=== PATIENT | male | born 1980 | race Caucasian/White ===

== ENCOUNTER 2016-09-28 12:29 | Emergency (ER) | payer BC ==
[~2016-09-28] VITALS: Ht 177.8 cm; Wt 102.3 kg
[2016-09-28 13:29] LABS: BASOPHILS % (AUTO) 1 % (0-2); EOSINOPHILS # (AUTO) 0.3 10^3uL; EOSINOPHILS % (AUTO) 4 % (0-4); LYMPHOCYTES # (AUTO) 3.8 X10^3; MEAN CORPUSCULAR HEMOGLOBIN 29.9 PG (26.0-34.0); MEAN CORPUSCULAR HGB CONC 34.2 g/dL (31.0-37.0); MEAN CORPUSCULAR VOLUME 88 FL (80-100); MEAN PLATELET VOLUME 10.4 FL (6.0-9.5); MONOCYTES # (AUTO) 0.9 X10^3; MONOCYTES % (AUTO) 11 % (3-11); NEUTROPHILS # (AUTO) 3.5 X10^3; NEUTROPHILS % (AUTO) 40 % (51-67); PLATELET COUNT 242 10^3uL (150-450); WHITE BLOOD COUNT 8.63 10^3uL (4.0-11.0)
[2016-09-28 13:45] LABS: ALBUMIN 4.4 g/dL (3.4-5.0); ALKALINE PHOSPHATASE 78 U/L (38-126); ANION GAP 14.5 MEQ/L (3-15); BUN/CREATININE RATIO 13 (10-20); CALCULATED IONIZED CALCIUM 3.9 mg/dL (3.8-4.6); TOTAL PROTEIN 7.7 g/dL (6.4-8.5)
[2016-09-28 15:31] LABS: ERYTHROCYTE SEDIMENTATION RT* 10 mm/hr (0-12)
[2016-09-28 19:37] VITALS: BP 137/94
== END 2016-09-28 14:33 | disposition home or self-care (01) ==
LOC: ED 12:33
DX: K62.5 Hemorrhage of anus and rectum (principal); R10.32 Left lower quadrant pain
CPT/HCPCS: 36415; 46600; 80053; 85025; 85610; 85652; 86140; 99282; 99283

== ENCOUNTER 2016-10-01 08:07 | Day surgery (SDC) | payer BC ==
[~2016-10-01] VITALS: Ht 177.8 cm; Wt 99.1 kg
[~2016-10-01 08:07] MED LIST: LACTATED RINGERS 1,000 ML IV SCH; SODIUM CHLORIDE FLUSH 3 ML SYR IV PRN
--- OUTSIDE RECORDS SUMMARY | 2016-10-01 08:26 | XMS REPORT | Continuity of Care Document ---
Author Author [facility] Address Unknown Phone Unavailable Support Name Relationship Address Phone LENCHO DUGAN DO Caregiver [address] [place] [address] ERICKAOTILIA CASAREZ Next Of Kin [address] [place] [address] Insurance Providers Payer Name Policy Number Subscriber Name Relationship Self Pay ErickaKylie casarezCheyanne 18 Self / Same As Patient Advance Directives Directive Response Recorded Date/Time Advanced Directives No 09/28/16 12:40pm Chief Complaint and Reason for Visit Chief Complaint GI Complaint Reason for Visit [id number] Problems Active Problems Medical Problem Onset Date Status Rectal bleeding Unknown Acute Medications No medication information available. Social History Query Response Start Date Stop Date Smoking Status Current every day smoker Hospital Discharge Instructions No hospital discharge instructions. Plan of Care Discharge Date 09/28/16 2:33pm Disposition 01 HOME OR SELF-CARE Condition at Discharge Stable Instructions/Education Provided Gastrointestinal Bleeding (DC) Prescriptions See Medication Section Referrals CULLEN MCPHERSON MD - Additional Instructions/Education You should return to the ER if you have any further rectal bleeding, or worsening abdominal pain. Call Dr. Mcpherson's office in the morning to arrange follow up care. Some of your test results may not be complete prior to your leaving the Emergency Department. The Emergency Department is not authorized to give test results over the phone. Please contact the doctor's office listed in this packet of information for your final results. Follow up with your primary care physician or return to the Emergency Department for worsening or worrisome symptoms. * Emergency Department phone number: [phone], x [phone]* MEDICAL RECORD If you need copies of your X-rays, call [phone]. If you need copies of your medical record, including lab results, a signed authorization for release of records will be required. A telephone call for release of Health Information is not allowed. BILLING Billing can sometimes be confusing and frustrating. To help avoid confusion in the future, please take a moment to acquaint yourself with the billing parties for services. SERVICE BILLING [facility] Emergency Room Services [facility] Physician Services [facility] X-rays [facility] Patients will receive bills for services from the appropriate provider. If you have any questions about your [facility] bill, our staff will be happy to assist you. Please call [phone], and ask for the billing department. THANK YOU for choosing [facility] as your emergency care provider! Care Plan and Goals ~~Discharge Care Plan~~ Problem: Rectal bleeding Goal: Instructions: Follow up with Dr Mcpherson Functional Status No functional status results. Allergies, Adverse Reactions, Alerts No allergy information available. Immunizations No immunization records. Vital Signs Acute Vital Signs Vital Response Date/Time Temperature (Fahrenheit) 98.0 09/28/2016 12:40pm Pulse 78 bpm 09/28/2016 12:40pm Respirations 16 09/28/2016 12:40pm Height 5 ft 10 in Weight 225 lb Body Mass Index 32.0 kg/m^2 Results Laboratory Results Test Name Result Units Flags Reference Collection Date/Time Result Date/ Time Comments White Blood Count 8.63 10^3uL 4.0-11.0 09/28/2016 1:22pm 09/28/2016 1: 36pm Red Blood Count 5.11 10^6uL 4.50-5.50 09/28/2016 1:22pm 09/28/2016 1: 36pm Hemoglobin 15.3 g/dL 13.5-17.0 09/28/2016 1:22pm 09/28/2016 1:36pm Hematocrit 44.70 % 39.00-50.00 09/28/2016 1:09/28/2016 1:36pm Mean Corpuscular Volume 88 FL 80-100 09/28/2016 1:09/28/2016 1: 36pm Mean Corpuscular Hemoglobin 29.9 PG 26.0-34.0 09/28/2016 1:2016 1:36pm Mean Corpuscular Hemoglobin Concent 34.2 g/dL 31.0-37.0 09/28/2016 1: 09/28/2016 1:36pm Red Cell Distribution Width 13.9 % 11.8-15.6 09/28/2016 1:2016 1:36pm Platelet Count 242 10^3uL 150-450 09/28/2016 1:09/28/2016 1:36pm Mean Platelet Volume 10.4 FL H 6.0-9.5 09/28/2016 1:09/28/2016 1: 36pm Neutrophils (%) (Auto) 40 % L 51-67 09/28/2016 1:09/28/2016 1:36pm Lymphocytes (%) (Auto) 44 % 20-46 09/28/2016 1:09/28/2016 1:36pm Monocytes (%) (Auto) 11 % 3-11 09/28/2016 1:09/28/2016 1:36pm Eosinophils (%) (Auto) 4 % 0-4 09/28/2016 1:09/28/2016 1:36pm Basophils (%) (Auto) 1 % 0-2 09/28/2016 1:09/28/2016 1:36pm Neutrophils # (Auto) 3.5 X10^3 09/28/2016 1:09/28/2016 1:36pm Lymphocytes # (Auto) 3.8 X10^3 09/28/2016 1:09/28/2016 1:36pm Monocytes # (Auto) 0.9 X10^3 09/28/2016 1:09/28/2016 1:36pm Eosinophils # (Auto) 0.3 10^3uL 09/28/2016 1:09/28/2016 1:36pm Basophils # (Auto) 0.1 10^3uL 09/28/2016 1:09/28/2016 1:36pm Erythrocyte Sedimentation Rate 10 mm/hr 0-12 09/28/2016 1:2016 3:31pm Prothrombin Time 12.0 SEC 10.0-12.5 09/28/2016 1:09/28/2016 1: 50pm Prothromb Time International Ratio 1.1 0.8-1.4 09/28/2016 1:02/2017 1:50pm Sodium Level 143 mmol/L 135-150 09/28/2016 1:09/28/2016 1:49pm Potassium Level 4.6 mmol/L 3.5-5.1 09/28/2016 1:09/28/2016 1:49pm Chloride Level 105 mmol/L 98-108 09/28/2016 1:09/28/2016 1:49pm Carbon Dioxide Level 28 mmol/L 22-29 09/28/2016 1:09/28/2016 1: 49pm Anion Gap 14.5 MEQ/L 3-15 09/28/2016 1:09/28/2016 1:49pm Blood Urea Nitrogen 11 mg/dL 7-18 09/28/2016 1:pm 09/28/2016 1:49pm Creatinine 0.86 mg/dL 0.8-1.5 09/28/2016 1:09/28/2016 1:49pm BUN/Creatinine Ratio 13 10-20 09/28/2016 1:09/28/2016 1:49pm Estimat Glomerular Filtration Rate 122.5 09/28/2016 1:2016 1:49pm Estimated GFR (Non- 101.2 09/28/2016 1:2016 1:49pm Glucose Level 89 mg/dL 70-110 09/28/2016 1:09/28/2016 1:49pm Calculated Osmolality 274 mosm/L L 280-300 09/28/2016 1:09/28/2016 1:49pm Calcium Level 9.3 mg/dL 8.8-10.8 09/28/2016 1:pm 09/28/2016 1:49pm Calcium/Ionized Calcium Ratio 3.9 mg/dL 3.8-4.6 09/28/2016 1:pm 09/28 1:49pm Total Bilirubin 0.8 mg/dL 0.1-1.0 09/28/2016 1:pm 09/28/2016 1:49pm Alkaline Phosphatase 78 U/L 38-126 09/28/2016 1:pm 09/28/2016 1:49pm Aspartate Amino Transf (AST/SGOT) 24 U/L 15-37 09/28/2016 1:pm 2016 1:49pm Alanine Aminotransferase (ALT/SGPT) 40 U/L 30-65 09/28/2016 1:pm 02/2017 1:49pm Total Protein 7.7 g/dL 6.4-8.5 09/28/2016 1:pm 09/28/2016 1:49pm Albumin 4.4 g/dL 3.4-5.0 09/28/2016 1:pm 09/28/2016 1:49pm Albumin/Globulin Ratio 1.333 1.1-1.8 09/28/2016 1:pm 09/28/2016 1: 49pm C-Reactive Protein < 0.50 mg/dL 0.0-0.9 09/28/2016 1:pm 09/28/2016 1: 49pm Stool Occult Blood POSITIVE NEGATIVE 09/28/2016 1:55pm 09/28/2016 3: 50pm Procedures No known history of procedures. Encounters Encounter Location Arrival/Admit Date Discharge/Depart Date Attending Provider Registered Emergency Room [facility] 09/28/16 12:33pm LENCHO DUGAN DO Recent Diagnosis
[2016-10-01 08:27] VITALS: BP 126/88
[2016-10-01] MEDS ORDERED: PROPOFOL 20 ML IV ONE (08:56)
[2016-10-01] MEDS ORDERED: ALFENTANIL 500 MCG/ML (ALFENTA) 5 ML AMP IV ONE ×2 (08:57)
[2016-10-01] MEDS ORDERED: MIDAZOLAM 2 MG/2 ML (VERSED) VIAL ONE (08:57)
[2016-10-01 10:05] VITALS: BP 123/71
[2016-10-01 10:20] VITALS: BP 116/79
--- NOTE | 2016-10-01 14:28 | OPERATIVE REPORT ---
DATE OF OPERATION: 10/01/2016 PRE-OPERATIVE DIAGNOSIS: 1. Constipation. 2. Blood per rectum. 3. Left lower quadrant pain. 4. Family history of colon cancer. POST-OPERATIVE DIAGNOSIS: 1. Mild proctitis. 2. Small rectal polyp. OPERATIVE PROCEDURE: Total colonoscopy with segmental biopsies and forceps polypectomy. SURGEON: Mike Valera MD ANESTHESIA: IV conscious sedation, Monitored Anesthesia Services. POSITION: Left lateral decubitus FINDINGS: 1. Mild proctitis with a tiny mid rectal sessile polyp. 2. The remainder of the colon appeared normal. 3. Prep was good. FINDINGS: This patient had presented to the emergency room over the weekend with left lower quadrant pain and a small amount of dark, red blood per rectum with bowel movements. He also had constipation at that time. The ER physician performed a digital rectal exam and anoscopy, which revealed no evidence of hemorrhoids. His white count and hemoglobin were normal at that time. The patient also has a family history of colon cancer, with his father diagnosed at age 52. He was referred for follow up evaluation. On the day of the procedure, the pain completely resolved, though he continued to have a scan amount of dark, red blood mixed with the stool. OPERATIVE NOTE: Following satisfactory induction of analgesia a digital rectal exam was performed. This revealed a normal prostate and no rectal mass. The sphincter tone was normal. Next the colonoscope was introduced per rectum and advanced under CO2 insufflation and direct vision to the cecum. The cecum was identified by convergence of the teniae, ileocecal valve and palpation of the right lower quadrant. The above findings were noted. [employer] photographs were obtained. Using cold biopsy forceps, multiple biopsies were obtained of each colon segment and submitted separately to pathology. The above areas were inspected again and the scope was slowly withdrawn. No blood was identified within the colon. The polyp was removed with cold biopsy forceps and submitted separately. Retroflexed view in the rectum was normal except for the mild proctitis. Excess CO2 was evacuated and the scope removed. The patient tolerated the procedure well and transferred to recovery in stable condition. RECOMMENDATIONS: Begin rectal hydrocortisone cream 2.5% twice daily. The patient was also given written instructions on constipation prevention and treatment. He is to follow up in the office in 1 week. Given his family history he should begin screening colonoscopy every 5 years at age 43, unless this polyp is adenomatous. If this polyp is adenomatous, then he needs to repeat colonoscopy in 5 years.
== END 2016-10-01 10:55 | disposition home or self-care (01) ==
LOC: ASC 08:07
PROVIDERS: ATTEND Surgery
DX: K92.1 Melena (principal); K62.1 Rectal polyp; R10.32 Left lower quadrant pain; K59.00 Constipation, unspecified; K62.89 Other specified diseases of anus and rectum; F17.210 Nicotine dependence, cigarettes, uncomplicated
CPT/HCPCS: 45380; J2250; J7120